=== PATIENT | male | born 1990 ===

== ENCOUNTER 2017-03-23 08:25 | Day surgery (SDC) | payer BC ==
[2017-03-23] MEDS ORDERED: Lactated Ringer's 500 ML IV ONE (09:16)
[2017-03-23] MEDS ORDERED: Propofol 10 mg/ml Inj (20 ML) ONE ×2 (11:19→11:36)
[2017-03-23 12:03] VITALS: TEMP 97; O2SAT 96
[2017-03-23 12:05] VITALS: BP 120/61; PULSE 59; RESP 15
== END 2017-03-23 12:28 | disposition home or self-care (01) ==
LOC: H.ENDO 08:25
PROVIDERS: ATTEND Internal Medicine Gastroenterology
DX: K64.0 First degree hemorrhoids (principal); R14.0 Abdominal distension (gaseous); K29.50 Unspecified chronic gastritis without bleeding; B96.81 Helicobacter pylori [H. pylori] as the cause of diseases classified elsewhere
CPT/HCPCS: 43239; 45378; 88305; J2001; J2704; J3010; J7120